=== PATIENT | female | born 1955 | race Caucasian/White ===

== ENCOUNTER 2018-01-26 17:04 | Observation (INO) | payer OTHER ==
[2018-01-26 17:33] LABS: ADD MAN DIFF? NO
[2018-01-26 17:36] LABS: BASO % 1 % (0-3); EOS # 0.2 x10^3/uL (0.0-0.7); EOS % 2 % (0-3); HEMATOCRIT 37.7 % (36.0-47.0); HEMOGLOBIN 12.8 g/dL (12.0-15.5); LYMPH # 1.7 x10^3/uL (1.0-4.8); LYMPH % 18 % (24-48); MEAN CORPUSCULAR HEMOGLOBIN 32 pg (25-35); MEAN CORPUSCULAR HGB CONC 34 g/dL (31-37); MEAN CORPUSCULAR VOLUME 95 fL (79-100); MONO # 0.6 x10^3/uL (0.0-1.1); MONO % 7 % (0-9); NEUT % 73 % (31-73); PLATELET COUNT 186 x10^3/uL (140-400); RED BLOOD COUNT 3.96 x10^6/uL (3.50-5.40); RED CELL DISTRIBUTION WIDTH 13.2 % (11.5-14.5); WHITE BLOOD COUNT 9.6 x10^3/uL (4.0-11.0)
[2018-01-26] MEDS: ASPIRIN 325 MG TABLET PO (17:42)
[2018-01-26 17:46] LABS: PROTHROMBIN TIME PATIENT 12.2 SEC (11.7-14.0)
[2018-01-26 17:48] LABS: ANION GAP 7 (6-14); BLOOD UREA NITROGEN 13 mg/dL (7-20); BUN/CREATININE RATIO 16 (6-20); CALCIUM 8.6 mg/dL (8.5-10.1); CARBON DIOXIDE 33 mmol/L (21-32); CHLORIDE 101 mmol/L (98-107); CREATININE 0.8 mg/dL (0.6-1.0); GFR 72.2; GLUCOSE 286 mg/dL (70-99); POTASSIUM 3.9 mmol/L (3.5-5.1); SODIUM 141 mmol/L (136-145)
[2018-01-26 17:53] LABS: ALBUMIN 3.6 g/dL (3.4-5.0); ALBUMIN/GLOBULIN RATIO 0.9 (1.0-1.7); ALK PHOS 50 U/L (46-116); ALT (SGPT) 38 U/L (14-59); AST (SGOT) 28 U/L (15-37); LIPASE 102 U/L (73-393); MAGNESIUM 1.6 mg/dL (1.8-2.4); TOTAL BILIRUBIN 0.4 mg/dL (0.2-1.0); TOTAL PROTEIN 7.8 g/dL (6.4-8.2)
[2018-01-26 17:55] LABS: TROPONINI < 0.017 ng/mL (0.000-0.055)
[2018-01-26 17:58] LABS: BILIRUBIN,URINE NEGATIVE (NEG); CLARITY,URINE CLEAR; COLOR,URINE YELLOW; GLUCOSE,URINE 500 mg/dL (NEG); NITRITE,URINE NEGATIVE (NEG); PROTEIN,URINE NEGATIVE (NEG-TRACE); UROBILINOGEN,URINE 0.2 mg/dL (0.2 mg/dL)
[2018-01-26 18:00] LABS: THYROID STIM HORMONE (TSH) 2.116 uIU/mL (0.358-3.74)
[2018-01-26] MEDS: NITROGLYCERIN SUBLINGUAL 0.4 MG BOTTLE OF 25. SL (18:00)
[2018-01-26 18:03] LABS: NT-PRO BNP 216 pg/mL (0-124)
[2018-01-26 18:03] LABS: CKMB INDEX 1.4 % (0-4); CKMB MASS 4.3 ng/mL (0.0-3.6); CREATINE KINASE 316 U/L (26-192)
[2018-01-26 18:05] LABS: BARBITURATES NEG (NEG); BENZODIAZEPINES NEG (NEG); CANNABINOIDS NEG (NEG); COCAINE NEG (NEG); METHADONE NEG (NEG); OPIATES NEG (NEG); PHENCYCLIDINE NEG (NEG)
[2018-01-26 18:10] LABS: AMPHETAMINE/METHAMPHETAMINE NEG (NEG); ETHANOL, URINE NEG (NEG)
[2018-01-26] MEDS: IPRATRPIUM/ALBUTEROL 0.5/2.5MG 3 ML NEBU. NEB (18:19)
[2018-01-26 18:27] LABS: BACTERIA,URINE FEW /HPF (0-FEW); RBC,URINE OCC /HPF (0-2); SQUAMOUS EPITHELIAL CELL,UR MOD /LPF
[2018-01-26] MEDS ORDERED: ACETAMINOPHEN 325 MG TABLET. PO (19:00)
[2018-01-26] MEDS ORDERED: NITROGLYCERIN SUBLINGUAL 0.4 MG BOTTLE OF 25. SL (19:00)
[2018-01-26] MEDS ORDERED: MORPHINE SULFATE 4 MG/ML DISP.SYRIN. IV (19:00)
[2018-01-26] MEDS ORDERED: ONDANSETRON PF 4 MG/2 ML VIAL. IV (19:00)
[2018-01-26] MEDS ORDERED: ZOLPIDEM 5 MG TABLET. PO (19:15)
[2018-01-26] MEDS ORDERED: DEXTROSE 50% 25 GM / 50ML DISP.SYRIN. IV (19:15)
[2018-01-26] MEDS ORDERED: ACETAMINOPHEN/CODEINE 300/30MG TABLET. PO (19:15)
[2018-01-26] MEDS: LIDO:MAALOX 1:1 20 ML SINGLE DOSE. SWSW (19:26)
[2018-01-26] MEDS: ENOXAPARIN 40 MG/0.4 ML SYRINGE. SQ (19:59)
[2018-01-26] MEDS: CIPROFLOXACIN 400MG PREMIX 200 ML IV (20:00)
[2018-01-26] MEDS ORDERED: INSULIN GLARGINE 300 UNITS/3 ML INSULN.PEN. SQ (21:00)
[2018-01-26] MEDS: CARVEDILOL 12.5 MG TABLET. PO (21:00)
[2018-01-26] MEDS: OMEGA-3 FATTY ACIDS/FISH OIL 1,000 MG CAPSULE. PO (21:13)
[2018-01-26] MEDS: PANTOPRAZOLE 40 MG TABLET.DR. PO (21:14)
[2018-01-26] MEDS: ACETAMINOPHEN 500 MG TABLET PO (21:26)
[2018-01-26 22:08] LABS: POC GLUCOSE 233 mg/dL (70-99)
[2018-01-26] MEDS: LISINOPRIL 20 MG TABLET PO (22:43)
[2018-01-26] MEDS: INSULIN GLARGINE 300 UNITS/3 ML INSULN.PEN. SQ (22:48)
[2018-01-26] MEDS: INSULIN LISPRO 300 UNITS/3 ML INSULN.PEN. SQ (22:49)
[2018-01-26 23:14] LABS: TROPONINI < 0.017 ng/mL (0.000-0.055)
[2018-01-27] MEDS: ACETAMINOPHEN 500 MG TABLET PO ×2 (04:04→20:58)
[2018-01-27 05:17] LABS: ADD MAN DIFF? NO
[2018-01-27 05:53] LABS: BASO # 0.1 x10^3/uL (0.0-0.2); BASO % 1 % (0-3); EOS # 0.1 x10^3/uL (0.0-0.7); EOS % 1 % (0-3); HEMATOCRIT 35.8 % (36.0-47.0); HEMOGLOBIN 12.2 g/dL (12.0-15.5); LYMPH % 22 % (24-48); MEAN CORPUSCULAR HEMOGLOBIN 33 pg (25-35); MEAN CORPUSCULAR HGB CONC 34 g/dL (31-37); MEAN CORPUSCULAR VOLUME 96 fL (79-100); MONO # 0.7 x10^3/uL (0.0-1.1); MONO % 8 % (0-9); NEUT # 6.3 x10^3uL (1.8-7.7); NEUT % 69 % (31-73); PLATELET COUNT 180 x10^3/uL (140-400); RED BLOOD COUNT 3.74 x10^6/uL (3.50-5.40); RED CELL DISTRIBUTION WIDTH 13.3 % (11.5-14.5); WHITE BLOOD COUNT 9.2 x10^3/uL (4.0-11.0)
[2018-01-27 05:57] LABS: TROPONINI < 0.017 ng/mL (0.000-0.055)
[2018-01-27] MEDS: LEVOTHYROXINE 112 MCG TABLET PO (06:15)
[2018-01-27 06:28] LABS: LIPASE 87 U/L (73-393)
[2018-01-27 06:28] LABS: ALBUMIN 3.4 g/dL (3.4-5.0); ALBUMIN/GLOBULIN RATIO 0.9 (1.0-1.7); ALK PHOS 43 U/L (46-116); ALT (SGPT) 35 U/L (14-59); ANION GAP 11 (6-14); AST (SGOT) 28 U/L (15-37); BLOOD UREA NITROGEN 11 mg/dL (7-20); BUN/CREATININE RATIO 18 (6-20); CALCIUM 8.4 mg/dL (8.5-10.1); CARBON DIOXIDE 29 mmol/L (21-32); CHLORIDE 102 mmol/L (98-107); CHOLESTEROL 97 mg/dL (0-200); CREATININE 0.6 mg/dL (0.6-1.0); GFR 100.6; GLUCOSE 205 mg/dL (70-99); HDLC 57 mg/dL (40-60); LDLC 26 mg/dL (0-100); NON-HDL CHOLESTEROL 40 mg/dL (0-129); POTASSIUM 3.6 mmol/L (3.5-5.1); SODIUM 142 mmol/L (136-145); TOTAL BILIRUBIN 0.5 mg/dL (0.2-1.0); TOTAL PROTEIN 7.3 g/dL (6.4-8.2); TRIGLYCERIDES 72 mg/dL (0-150); VLDLC 14 mg/dL (0-40)
[2018-01-27 06:32] LABS: CHOLESTEROL/HDL RATIO 1.7
[2018-01-27] MEDS ORDERED: LEVOTHYROXINE 125 MCG TABLET PO (07:00)
[2018-01-27] MEDS: INSULIN LISPRO 300 UNITS/3 ML INSULN.PEN. SQ ×7 (08:00→17:55)
[2018-01-27 08:51] LABS: POC GLUCOSE 216 mg/dL (70-99)
[2018-01-27] MEDS: CIPROFLOXACIN 400MG PREMIX 200 ML IV (08:56)
[2018-01-27] MEDS ORDERED: LISINOPRIL 20 MG TABLET PO (09:00)
[2018-01-27] MEDS ORDERED: NON FORMULARY ITEM (Gluc 2KCL/Chondr/Coll Hy/Hy Ac (Glucosamine & Chondroitin Cap) 1 EACH) PO (09:00)
[2018-01-27] MEDS ORDERED: cloNIDine HCL 0.1 MG TABLET PO (09:15)
[2018-01-27] MEDS ORDERED: DEXTROSE 50% 25 GM / 50ML DISP.SYRIN. IV (09:15)
[2018-01-27] MEDS ORDERED: ONDANSETRON PF 4 MG/2 ML VIAL. IV (09:15)
[2018-01-27] MEDS: ASPIRIN ENTERIC COATED 81 MG TABLET.DR. PO (10:45)
[2018-01-27] MEDS: OMEGA-3 FATTY ACIDS/FISH OIL 1,000 MG CAPSULE. PO ×2 (10:45→20:57)
[2018-01-27] MEDS: CYANOCOBALAMIN (VITAMIN B-12) 1,000 MCG TABLET. PO (10:45)
[2018-01-27] MEDS ORDERED: CALCIUM CARBONATE 500 MG TAB.CHEW PO (10:45)
[2018-01-27] MEDS: LISINOPRIL 20 MG TABLET PO (10:46)
[2018-01-27 12:11] LABS: POC GLUCOSE 226 mg/dL (70-99)
[2018-01-27] MEDS: CARVEDILOL 12.5 MG TABLET. PO ×2 (12:47→17:51)
[2018-01-27] MEDS: FLUTICASONE 50MCG/NASAL SPRAY 16GM BOTTLE. NS ×2 (12:48→20:57)
[2018-01-27] MEDS: PANTOPRAZOLE 40 MG TABLET.DR. PO (12:48)
[2018-01-27] MEDS: CETIRIZINE HCL 10 MG TABLET. PO (12:48)
[2018-01-27 16:57] LABS: POC GLUCOSE 187 mg/dL (70-99)
[2018-01-27 20:43] LABS: POC GLUCOSE 213 mg/dL (70-99)
[2018-01-27] MEDS: SIMVASTATIN 40 MG TABLET. PO (20:57)
[2018-01-27] MEDS: guaiFENesin DM 200MG/20MG 10 ML SYRUP PO (20:57)
[2018-01-27] MEDS: CIPROFLOXACIN HCL 250 MG TABLET. PO (20:57)
[2018-01-27] MEDS: LACTOBACILLUS RHAMNOSUS GG 1 CAPSULE. PO (20:57)
[2018-01-27] MEDS: INSULIN GLARGINE 300 UNITS/3 ML INSULN.PEN. SQ (21:08)
[2018-01-28] MEDS: guaiFENesin DM 200MG/20MG 10 ML SYRUP PO ×2 (04:19→12:16)
[2018-01-28] MEDS: LEVOTHYROXINE 112 MCG TABLET PO (06:23)
[2018-01-28 08:07] LABS: POC GLUCOSE 265 mg/dL (70-99)
[2018-01-28] MEDS: FLUTICASONE 50MCG/NASAL SPRAY 16GM BOTTLE. NS (08:08)
[2018-01-28] MEDS: LACTOBACILLUS RHAMNOSUS GG 1 CAPSULE. PO (08:09)
[2018-01-28] MEDS: OMEGA-3 FATTY ACIDS/FISH OIL 1,000 MG CAPSULE. PO (08:09)
[2018-01-28] MEDS: PANTOPRAZOLE 40 MG TABLET.DR. PO (08:09)
[2018-01-28] MEDS: LISINOPRIL 20 MG TABLET PO (08:09)
[2018-01-28] MEDS: CETIRIZINE HCL 10 MG TABLET. PO (08:09)
[2018-01-28] MEDS: CYANOCOBALAMIN (VITAMIN B-12) 1,000 MCG TABLET. PO (08:09)
[2018-01-28] MEDS: ASPIRIN ENTERIC COATED 81 MG TABLET.DR. PO (08:09)
[2018-01-28] MEDS: REGADENOSON 0.4 MG/5 ML DISP.SYRIN. IV (08:45)
[2018-01-28] MEDS ORDERED: REGADENOSON 0.4 MG/5 ML DISP.SYRIN. IV (09:00)
[2018-01-28] MEDS: CARVEDILOL 12.5 MG TABLET. PO (09:47)
[2018-01-28] MEDS: CIPROFLOXACIN HCL 250 MG TABLET. PO (09:47)
[2018-01-28] MEDS: INSULIN LISPRO 300 UNITS/3 ML INSULN.PEN. SQ ×4 (09:50→12:16)
[2018-01-28 11:17] LABS: POC GLUCOSE 231 mg/dL (70-99)
== END 2018-01-28 13:30 | disposition home or self-care (01) ==
LOC: 2 SOUTH 19:59 → ER 17:04 → 2 SOUTH 18:24
DX: R07.89 Other chest pain (principal); K29.70 Gastritis, unspecified, without bleeding; E11.51 Type 2 diabetes mellitus with diabetic peripheral angiopathy without gangrene; I16.1 Hypertensive emergency; I10 Essential (primary) hypertension; E03.9 Hypothyroidism, unspecified; K21.9 Gastro-esophageal reflux disease without esophagitis; E66.9 Obesity, unspecified; E78.00 Pure hypercholesterolemia, unspecified; E78.5 Hyperlipidemia, unspecified; N39.0 Urinary tract infection, site not specified; Z82.49 Family history of ischemic heart disease and other diseases of the circulatory system; Z83.3 Family history of diabetes mellitus
CPT/HCPCS: 36415; 70450; 71045; 78452; 80053; 80061; 80307; 81001; 82553; 82962; 83690; 83735; 83880; 84443; 84484; 85025; 85610; 93005; 93017; 94640; 96365; 96366; 96372; 96374; 96375; 96376; 97161-GP; 97165-GO; 99285-25; A9500; G0378; G0379; J0744; J1650; J1815; J2785; J7620

== ENCOUNTER 2020-07-01 13:53 | Emergency (ER) | payer OTHER, MEDICARE ==
[~2020-07-01] VITALS: Ht 160 cm; Wt 93.1 kg
[~2020-07-01 13:53] MED LIST: ACET-704 PO; ASPI-482 PO; CARV6.25 PO; CETI10TA16 PO; CIPR250T30 PO; CYAN-25 PO; GLUC1CAP48 PO; HYDR50TA6 PO; INSU100I13 SQ; INSU100I17 SQ; LACT100C2 PO; LEVO112T2 PO; LEVO112T49 PO; LEVO125T5 PO; LISI-130 PO; LISI-334 PO; METF10007 PO; METR1KIT TP; MULT-445 PO; OMEG1CAP6 PO; SIMV40TA18 PO
--- NOTE | 2020-07-01 14:57 | RAD ---
Right lower extremity venous doppler ultrasound History: Pain, swelling Comparison: None Findings: Multiple grayscale, color, and duplex spectral analysis sonographic images were acquired of the right lower extremity veins to evaluate for the presence of DVT. There is normal phasicity. Normal compression, color-flow, and augmentation is demonstrated from the right common femoral to the popliteal veins. There is normal color flow of the proximal greater saphenous and profunda femoris veins. There is normal color flow of segments of the calf veins. There is a fluid collection in the right popliteal fossa about 3.9 x 1.2 x 3.4 cm. Impression: 1. There is no evidence of deep venous thrombosis from the right common femoral to the popliteal veins. 2. There is right popliteal fossa fluid collection. Electronically signed by: Slick Giron MD (07/01/2020 2:54 PM) [facility]
[2020-07-01] MEDS ORDERED: NAPR-682 PO (16:14)
[2020-07-01] MEDS ORDERED: ACET1TAB33 PO (16:14)
--- NOTE | 2020-07-01 16:15 | ED.ADGEN ---
Past Medical History Past Medical History: Diabetes-Type II, High Cholesterol, Hypertension, H ypothyroid Past Surgical History: , Other Additional Past Surgical Histo: bilateral trigger finger Smoking Status: Never Smoker Alcohol Use: None Drug Use: None General Adult EDM: Chief Complaint: LOWER EXT PAIN HPI: HPI: Patient 65-year-old female with past medical history of diabetes who presents to the emergency room complaining of pain behind the right knee that radiates into her lower leg. This started 3 days ago. She denies any trauma. Her son is a physician and is concerned about a blood clot. She is not had any long travels and is typically active. She states that the pain has gotten worse over time. She has not noticed any swelling in her legs. She has not noticed any rash or erythema. She is never had a DVT previously. She states pain feels like sharp pains. Review of Systems: Review of Systems: General: Denies fever, chills, sweats, fatigue Eyes: Denies drainage, blurred vision, eye redness HENT: Denies rhinorrhea, sore throat, earache Respiratory: Denies cough, shortness of breath, wheezing Cardiac: Denies edema, palpitations, chest pain GI: Denies abdominal pain, Nausea, vomiting MSK: Denies back pain, neck pain Skin: Denies rash, jaundice Neuro: Denies headache, dizziness Psychiatric: Denies SI/HI Allergies: Allergies: Allergies Coded Allergies Type Severity Reaction Last Updated Verified Penicillins Allergy Intermediate 01/27/18 Yes adhesive Allergy Intermediate 01/27/18 Yes clindamycin Allergy Intermediate 01/27/18 Yes sulfamethoxazole Allergy Intermediate 01/27/18 Yes trimethoprim Allergy Intermediate 01/27/18 Yes Tetracyclines Allergy Mild rash 07/01/20 Yes atorvastatin Allergy Mild itching 07/01/20 Yes latex Allergy Mild rash 07/01/20 Yes Uncoded Allergies Type Severity Reaction Last Updated Verified MOST NARCOTICS Adverse Reaction Mild Nausea and Vomiting 01/27/18 Physical Exam: PE: General: Awake, alert, NAD. Well Nourished, well hydrated. Cooperative HEENT: Atraumatic, EOMI, PERRL, airway patent, moist oral mucosa Neck: Supple, trachea midline Respiratory: CTA bilaterally, normal effort, no wheezing/crackles CV: RRR, no murmur, cap refill <2 GI: Soft, nondistended, nontender, no masses MSK: Right knee: Soft tissue swelling around the knee without a joint effusion, tenderness behind the knee, no pitting edema Skin: Warm, dry, intact Neuro: A&O x3, speech NL, sensory and motor grossly intact, no focal deficits Psych: Normal affect, normal mood, not suicidal or homicidal Current Patient Data: Vital Signs: Vital Signs Date Time Temp Pulse Resp B/P (MAP) Pulse Ox O2 Delivery O2 Flow Rate FiO2 07/01/20 15:00 66 20 170/72 (104) 97 Room Air 07/01/20 14:20 98.4 98.4 EKG: EKG: [] Heart Score: Risk Factors: Risk Factors: DM, Current or recent (<one month) smoker, HTN, HLP, family history of CAD, obesity. Risk Scores: Score 0 - 3: 2.5% MACE over next 6 weeks - Discharge Home Score 4 - 6: 20.3% MACE over next 6 weeks - Admit for Clinical Observation Score 7 - 10: 72.7% MACE over next 6 weeks - Early Invasive Strategies Radiology/Procedures: Radiology/Procedures: [] Course & Med Decision Making: Course & Med Decision Making Pertinent Labs and Imaging studies reviewed. (See chart for details) Patient is a 65-year-old female who presents to the emergency room with a new right knee and leg pain. Ultrasound was done to rule out a DVT. Ultrasound shows Castillo's cyst. We will treat her with anti-inflammatories and have her follow-up with orthopedic surgery Dr. Kent who she is seen previously. Patient's test results and vitals while in the ED were fully reviewed and discussed with the patient. Patient is stable and at this time does not need admission to the hospital. We have discussed strict return precautions and the importance of following up with their Primary Care Physician. Patient stated understanding and was given an opportunity to ask any questions. Patient is in agreement with plan. Dragon Disclaimer: Dragon Disclaimer: This electronic medical record was generated, in whole or in part, using a voice recognition dictation system. Departure Departure Impression: Primary Impression: Castillo cyst Disposition: 01 DC HOME SELF CARE/HOMELESS Condition: STABLE Referrals: JOURDAN PASCUAL MD (PCP) Patient Instructions: Castillo's Cyst Scripts Naproxen Sodium (ANAPROX DS) 550 Mg Tablet 1 TAB PO BID for 15 Days, #30 TAB 0 Refills Prov: CLARA ANDERSON MD 07/01/20 Acetaminophen With Codeine (ACETAMINOPHEN-COD #3 TABLET) 1 Each Tablet 1 TAB PO PRN Q6HRS PRN for PAIN for 7 Days, #12 TAB Prov: CLARA ANDERSON MD 07/01/20 CLARA ANDERSON MD Jul 01, 2020 16:15
[2020-07-01 16:30] VITALS: BP 159/68
== END 2020-07-01 16:40 | disposition home or self-care (01) ==
LOC: ER 13:53
DX: M71.21 Synovial cyst of popliteal space [Baker], right knee (principal); E11.9 Type 2 diabetes mellitus without complications; E78.00 Pure hypercholesterolemia, unspecified; I10 Essential (primary) hypertension; E03.9 Hypothyroidism, unspecified; Z88.0 Allergy status to penicillin; Z88.1 Allergy status to other antibiotic agents; Z88.2 Allergy status to sulfonamides; Z91.040 Latex allergy status; Z88.8 Allergy status to other drugs, medicaments and biological substances
CPT/HCPCS: 93971; 99285

== ENCOUNTER 2021-07-26 23:19 | Emergency (ER) | payer MEDICARE ==
[~2021-07-26] VITALS: Ht 157.5 cm; Wt 90.0 kg
[~2021-07-26 23:19] MED LIST changes: +ACET1TAB33 PO; -HYDR50TA6 PO; +HYDR50TA9 PO; -LISI-334 PO; +LISI20TA18 PO; +NAPR-682 PO
--- NOTE | 2021-07-27 00:18 | PHYS DOC ---
Past Medical History Past Medical History: Diabetes-Type II, High Cholesterol, Hypertension, H ypothyroid (HEMAL HUMPHREY APRN) Past Surgical History: , Other Additional Past Surgical Histo: bilateral trigger finger (HEMAL HUMPHREY APRN) Smoking Status: Never Smoker Alcohol Use: None Drug Use: None (HEMAL HUMPHREY APRN) General Adult EDM: Chief Complaint: SHORTNESS OF BREATH HPI: HPI: Patient is a 66 year old female who presents with feeling shaky. Patient states "I just feel really shaky on the inside". Patient reports that shaky feeling started at 630 this morning. Patient chest pain, shortness of breath, dizziness. Patient has a history of diabetes, hypertension, hyperlipidemia, hypothyroidism. Patient's last blood sugar 1 hour ago was 159. Patient denies recent illness. Patient is fully vaccinated for COVID-19. (HEMAL HUMPHREY APRN) Review of Systems: Review of Systems: Constitutional: Denies fever or chills. [] Eyes: Denies change in visual acuity. [] HENT: Denies nasal congestion or sore throat. [] Respiratory: Denies cough or shortness of breath. [] Cardiovascular: Denies chest pain or edema. [] GI: Denies abdominal pain, nausea, vomiting, bloody stools or diarrhea. [] : Denies dysuria. [] Musculoskeletal: Denies back pain or joint pain. [] Integument: Denies rash. [] Neurologic: Denies headache, focal weakness or sensory changes. [] Endocrine: Denies polyuria or polydipsia. [] Lymphatic: Denies swollen glands. [] Psychiatric: Denies depression or anxiety. [] (HEMAL HUMPHREY APRN) Heart Score: C/O Chest Pain: No Risk Factors: Risk Factors: DM, Current or recent (<one month) smoker, HTN, HLP, family hist ory of CAD, obesity. Risk Scores: Score 0 - 3: 2.5% MACE over next 6 weeks - Discharge Home Score 4 - 6: 20.3% MACE over next 6 weeks - Admit for Clinical Observation Score 7 - 10: 72.7% MACE over next 6 weeks - Early Invasive Strategies (HEMAL HUMPHREY APRN) C/O Chest Pain: N/A (EL DELONG MD) Allergies: Allergies: Allergies Coded Allergies Type Severity Reaction Last Updated Verified Penicillins Allergy Intermediate 01/27/18 Yes adhesive Allergy Intermediate 01/27/18 Yes clindamycin Allergy Intermediate 01/27/18 Yes sulfamethoxazole Allergy Intermediate 01/27/18 Yes trimethoprim Allergy Intermediate 01/27/18 Yes Tetracyclines Allergy Mild rash 07/01/20 Yes atorvastatin Allergy Mild itching 07/01/20 Yes latex Allergy Mild rash 07/01/20 Yes Uncoded Allergies Type Severity Reaction Last Updated Verified MOST NARCOTICS Adverse Reaction Mild Nausea and Vomiting 01/27/18 (HEMAL HUMPHREY APRN) Physical Exam: PE: Constitutional: Well developed, well nourished, no acute distress, non-toxic appearance. [] HENT: Normocephalic, atraumatic, bilateral external ears normal, oropharynx moist, no oral exudates, nose normal. [] Eyes: PERRLA, EOMI, conjunctiva normal, no discharge. [] Neck: Normal range of motion, no tenderness, supple, no stridor. [] Cardiovascular:Heart rate regular rhythm, no murmur [] Lungs & Thorax: Bilateral breath sounds clear to auscultation [] Abdomen: Bowel sounds normal, soft, no tenderness, no masses, no pulsatile masses. [] Skin: Warm, dry, no erythema, no rash. [] Back: No tenderness, no CVA tenderness. [] Extremities: No tenderness, no cyanosis, no clubbing, ROM intact, no edema. [] Neurologic: Alert and oriented X 3, normal motor function, normal sensory function, no focal deficits noted. [] Psychologic: Affect normal, judgement normal, mood normal. [] (HEMAL HUMPHREY EDIPHONE OPERATOR) EKG: EKG: Heart rate 75 bpm. Sinus rhythm. No STEMI. Read by Dr. Delong. [] (HEMAL HUMPHREY EDIPHONE OPERATOR) Radiology/Procedures: Radiology/Procedures: [] XR CHEST 1V Clinical History: Reason: SHAKY / Spl. Instructions: / History: Technique: AP view of the chest was obtained at 07/27/2021 12:18 AM. Comparison: January 26, 2018. Findings: The cardiomediastinal silhouette is normal. The pulmonary vasculature is normal. There is linear opacities in the left lung base. Impression: Left basal infiltrate could be discoid atelectasis or pneumonia. Electronically signed by: Mk Arshad III, MD (07/27/2021 12:28 AM) [facility] (HEMAL HUMPHREY APRN) Radiology/Procedures: [facility] [address] [place] [address] IMAGING REPORT Signed PATIENT: JOSEPH KHOURY ACCOUNT: [id number] : 1955 LOCATION: ER AGE: 66 SEX: F EXAM STATUS: REG ER ORD. PHYSICIAN: HEMAL HUMPHREY APRN REASON: SHAKY PROCEDURE: CHEST AP ONLY XR CHEST 1V Clinical History: Reason: SHAKY / Spl. Instructions: / History: Technique: AP view of the chest was obtained at 07/27/2021 12:18 AM. Comparison: January 26, 2018. Findings: The cardiomediastinal silhouette is normal. The pulmonary vasculature is normal. There is linear opacities in the left lung base. Impression: Left basal infiltrate could be discoid atelectasis or pneumonia. Electronically signed by: Mk Arshad III, MD (07/27/2021 12:28 AM) [facility] DICTATED and SIGNED BY: MK ARSHAD III, MD DATE: 07/27/21 [id number] (EL DELONG MD) Course & Med Decision Making: Course & Med Decision Making Pertinent Labs and Imaging studies reviewed. (See chart for details) [] 66-year-old female presents with a feeling of a shakiness on the inside. Patient denies any other symptoms. Work-up in the ER consisted of labs, chest x-ray, EKG. Transfer of patient care to Dr. Delong at 0100 (HEMAL HUMPHREY APRN) Dragon Disclaimer: Dragon Disclaimer: This electronic medical record was generated, in whole or in part, using a voice recognition dictation system. (HEMAL HUMPHREY APRN) Departure Departure Impression: Primary Impression: Pneumonia Disposition: HOME / SELF CARE / HOMELESS Condition: STABLE Referrals: JOURDAN PASCUAL MD (PCP) Patient Instructions: Pneumonia, Adult Scripts Levofloxacin (LEVOFLOXACIN) 750 Mg Tablet 1 TAB PO DAILY for antibioitic for 5 Days, #5 TAB Prov: EL DELONG MD 07/27/21 HEMAL HUMPHREY APRN Jul 27, 2021 00:18 EL DELONG MD Jul 27, 2021 02:31
[2021-07-27 00:24] LABS: BILIRUBIN,URINE NEGATIVE (NEG); CLARITY,URINE CLEAR; COLOR,URINE YELLOW; NITRITE,URINE NEGATIVE (NEG); PROTEIN,URINE NEGATIVE (NEG-TRACE); UROBILINOGEN,URINE 0.2 mg/dL (0.2 mg/dL)
--- NOTE | 2021-07-27 00:31 | RAD ---
XR CHEST 1V Clinical History: Reason: SHAKY / Spl. Instructions: / History: Technique: AP view of the chest was obtained at 07/27/2021 12:18 AM. Comparison: January 26, 2018. Findings: The cardiomediastinal silhouette is normal. The pulmonary vasculature is normal. There is linear opac ities in the left lung base. Impression: Left basal infiltrate could be discoid atelectasis or pneumonia. Electronically signed by: Lupillo Smith III, MD (07/27/2021 12:28 AM) [facility]
[2021-07-27 00:37] LABS: BACTERIA,URINE FEW /HPF (0-FEW); RBC,URINE 0 /HPF (0-2)
[2021-07-27 01:17] LABS: BASO % 1 % (0-3); EOS # 0.2 x10^3/uL (0.0-0.7); EOS % 4 % (0-3); HEMOGLOBIN 11.6 g/dL (12.0-15.5); LYMPH # 2.5 x10^3/uL (1.0-4.8); LYMPH % 40 % (24-48); MEAN CORPUSCULAR HEMOGLOBIN 32 pg (25-35); MEAN CORPUSCULAR HGB CONC 34 g/dL (31-37); MEAN CORPUSCULAR VOLUME 94 fL (79-100); MONO # 0.5 x10^3/uL (0.0-1.1); MONO % 8 % (0-9); NEUT # 2.9 x10^3/uL (1.8-7.7); NEUT % 47 % (31-73); PLATELET COUNT 205 x10^3/uL (140-400); RED CELL DISTRIBUTION WIDTH 13.2 % (11.5-14.5); WHITE BLOOD COUNT 6.1 x10^3/uL (4.0-11.0)
[2021-07-27 01:28] LABS: CALCIUM 8.8 mg/dL (8.5-10.1); CREATININE 0.8 mg/dL (0.6-1.0); GFR 71.3; POTASSIUM 3.5 mmol/L (3.5-5.1)
[2021-07-27 01:35] LABS: ALBUMIN 3.7 g/dL (3.4-5.0); TOTAL BILIRUBIN 0.5 mg/dL (0.2-1.0); TOTAL PROTEIN 7.5 g/dL (6.4-8.2)
[2021-07-27] MEDS ORDERED: LEVO750T5 PO (02:31)
[2021-07-27 02:45] VITALS: BP 150/65
--- NOTE | 2021-07-27 06:30 | EKG ---
[facility] [address] [place] [address] Test Date: 2021-07-27 Test Time: 00:02:22 Pat Name: JOSEPH KHOURY Department: Room: Gender: F Clinical Exercise Specialist: : 1955 Requested By: HEMAL HUMPHREY Order Number: [id number] Reading MD: Orlando Cevallos Measurements Intervals [place] Rate: 75 P: 0 [place]: 148 QRS: -63 QRSD: 128 T: 49 QT: 464 QTc: 521 Interpretive Statements SINUS RHYTHM ABNORMAL LEFT AXIS DEVIATION LEFT ANTERIOR FASCICULAR BLOCK RIGHT BUNDLE BRANCH BLOCK BIFASCICULAR BLOCK ABNORMAL ECG Electronically Signed On 07-27-2021 14:17:34 WIRE TESTER by Orlando Cevallos
== END 2021-07-27 02:55 | disposition home or self-care (01) ==
LOC: ER 23:19
DX: J18.9 Pneumonia, unspecified organism (principal); E11.9 Type 2 diabetes mellitus without complications; E78.00 Pure hypercholesterolemia, unspecified; I10 Essential (primary) hypertension; E03.9 Hypothyroidism, unspecified; Z88.0 Allergy status to penicillin; Z88.1 Allergy status to other antibiotic agents; Z88.2 Allergy status to sulfonamides; Z91.040 Latex allergy status
CPT/HCPCS: 36415; 71045; 80053; 81001; 84484; 85025; 87086; 93005; 99285-25